=== PATIENT | female | born 1970 | race Caucasian/White ===

== ENCOUNTER 2016-11-01 13:29 | Emergency (ER) | payer OTHER ==
[2016-11-01 13:43] VITALS: BP 122/73
[2016-11-01] MEDS ORDERED: Sodium Chloride 0.9% 1,000 ML IV ONE (13:52)
[2016-11-01] MEDS ORDERED: HYDROmorphone 1 MG/ML Syringe IVPUSH ONE ×3 (13:52→18:20)
[2016-11-01] MEDS ORDERED: Metoclopramide 10 MG/2 ML SDV IVPUSH ONE (13:53)
--- NOTE | 2016-11-01 13:59 | EDM.PDOC ---
ED HPI GI/ABDOMINAL - General Chief Complaint: Abdominal Pain Stated Complaint: POST-SURGICAL ABDOMINAL PAIN Time Seen by Provider: 11/01/16 13:52 Source of Information: Reports: Patient History Limitations: Reports: No limitations - History of Present Illness INITIAL COMMENTS - FREE TEXT/NARRATIVE: 46-year-old female currently a inmate at the women's correctional facility in [place]. She underwent gastric bypass initially in 2000. Subsequent recurrent problems with fistulous to the skin in the midline since that time and she relates 7 previous surgeries. 2 weeks ago she underwent midline laparotomy to explore the fistula and provide closure. 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 This surgery was carried out by Dr. Arriaga at [facility] in [place]. Patient reports that she believes that this was connected to the loop of duodenum utilized for the bypass. It's unclear exactly what was done for sure other than that the fistula was closed off. She states that she's been having chronic pain in the area since the surgery which is getting worse the last few days with now developing redness inferior aspect of the wound. States the pain travels underneath her right costal margin and it circles back to the midline. She states she can barely eat before she feels full. The stool she did does have the are always loose IE part of the dumping syndrome.this usually occurs once to 3 times daily. No blood noted. Aware of any fever or severe chills. Previous abdominal surgeries include cholecystectomy total abdominal hysterectomy with removal of one ovary. 2 previous C-sections. Symptom Onset Date: 10/17/16 Timing/Duration: Reports: Day(s):, Constant, Getting worse Location: other (wound is in the midline and mostly supraumbilical.) Quality: Reports: ache, burning, fullness, stabbing, radiating (radiates along the right costal margin and then circles back towards the midline to the umbilicus.) Severity: moderate Improves with: Reports: other (nothing seems to make it better or worse.). Denies: defecating Context: Reports: recent surgery (as described above). Denies: sick contact, bad/questionable food, out of country travel, recent trauma, lifting Associated Symptoms (-Female): Reports: diarrhea (toes are always loose.), loss of appetite, malaise. Denies: shoulder pain, constipation Treatments CAMPGROUND MANAGER: Reports: Acetaminophen, NSAIDS (Motrin. Note this is relatively contraindicated in gastric bypass patients.) - Related Data Allergies/ADRs: Allergies Allergy/AdvReac Type Severity Reaction Status Date / Time aspirin Allergy Swelling Verified 11/01/16 13:43 bee pollen Allergy Swelling Verified 11/01/16 13:43 loperamide Allergy Cannot Verified 11/01/16 13:43 Remember Home Meds: Home Meds Furosemide 10 mg PO DAILY 05/17/15 [History] Omeprazole 20 mg PO BIDAC 05/17/15 [History] Venlafaxine HCl [Venlafaxine ER] 225 mg PO BEDTIME 05/17/15 [History] Acetaminophen [Tylenol] 650 mg PO Q6H PRN 05/28/15 [History] Ibuprofen [Motrin] 200 mg PO Q6HR PRN 05/28/15 [History] Docusate Sodium [Colace] 100 mg PO DAILY 11/01/16 [History] Past Medical History Other Psychiatric History: personality disorder Other Endocrine/Metabolic History: hypoglycemia Other Hematologic History: HEP C POSITIVE - Past Surgical History GI Surgical History: Reports: Bariatric procedure (gastric bypass Michael-en-Y procedure in 2000.), Cholecystectomy, Other (see below) (7 surgeries for midline abdominal wound drainage and attempted closure superficially. Recent major surgery identified a fistula connecting to the duodenal loop.) Female Surgical History: Reports: section (x2), Hysterectomy, Salpingo-oophorectomy Social & Family History - Tobacco Use Smoking Status *Q: Never Smoker - Recreational Drug Use Recreational Drug Use: No Drug Use in Last 12 Months: No - Living Situation & Occupation Living situation: Reports: other (currently a resident at [facility] in [place]) Occupation: unemployed ED ROS GENERAL - Review of Systems Review Of Systems: See Below Constitutional: Reports: malaise, weakness, fatigue, decreased appetite, weight loss. Denies: fever, chills HEENT: Reports: No symptoms Respiratory: Reports: Shortness of Breath, Other (feels pressure up into the mid epigastric area which causes her to feel short of breath at times.) Cardiovascular: Reports: No symptoms Endocrine: Reports: fatigue GI/Abdominal: Reports: Abdominal pain (see history of present illness), Diarrhea (chronic loose stools since having gastric bypass surgery.) : Reports: no symptoms Musculoskeletal: Reports: back pain Skin: Reports: wound (erythema around the surgical wound.) Neurological: Reports: No Symptoms Psychiatric: Reports: No symptoms Hematologic/Lymphatic: Reports: no symptoms ED EXAM, GI/ABD - Physical Exam Exam: See Below Exam Limited By: No limitations General Appearance: alert, moderate distress (she is anxious but claims that she is in quite significant discomfort in the abdominal wound area.) Eyes: bilateral: normal appearance (no jaundice.) Throat/Mouth: Normal inspection, Normal lips, Normal oropharynx, Other Head: atraumatic, normocephalic (tongue is mildly dry and coated) Neck: normal inspection, supple, non-tender, full range of motion Respiratory/Chest: no respiratory distress, lungs clear, normal breath sounds, no accessory muscle use, respiratory distress Cardiovascular: regular rate, rhythm, no edema. No: normal peripheral pulses GI/Abdominal: hyperactive bowel sounds (slightly hyperactive active bowel sounds in all 4 quadrants), tenderness (marked tenderness midline supraumbilical surgical wound. There is erythema of the skin inferiorly and to the right of the midline. It is fairly faint at this time), guarding (. It is warm to palpation and very tender.) Back Exam: normal inspection, full range of motion. No: CVA tenderness (L), CVA tenderness (R) Extremities: normal inspection, normal range of motion, non-tender, no pedal edema, normal capillary refill Neurological: alert, oriented, CN II-XII intact, normal cognition Psychiatric: normal affect, normal mood Skin Exam: Warm, Dry, Intact, Normal color, No rash Course - Vital Signs Last Recorded V/S: Last Vital Signs Temp 36.8 C 11/01/16 13:39 Pulse 77 11/01/16 13:39 Resp 20 11/01/16 13:39 BP 122/73 11/01/16 13:39 Pulse Ox 100 11/01/16 13:39 - Orders/Labs/Meds Orders: Active Orders 24 hr Category Date Time Status CULTURE BLOOD [BC] Stat Lab 11/01/16 14:15 Received CULTURE BLOOD [BC] Stat Lab 11/01/16 14:27 Received Blood Culture x2 Reflex Set [OM.PC] Stat Oth 11/01/16 13:53 Ordered Labs: Laboratory Tests 11/01/16 11/01/16 11/01/16 Range/Units 14:15 14:15 14:54 WBC 8.62 (3.98-10.04) K/mm3 RBC 3.36 L (3.98-5.22) M/mm3 Hgb 10.6 L (11.2-15.7) gm/L Hct 32.3 L (34.1-44.9) % MCV 96.1 H (79.4-94.8) fl MCH 31.5 (25.6-32.2) pg MCHC 32.8 (32.2-35.5) g/dl RDW Std Deviation 45.3 (36.4-46.3) fL Plt Count 184 (182-369) K/mm3 MPV 10.4 (9.4-12.3) fl Neutrophils % (Manual) 72 H (40-60) % Band Neutrophils % 0 (0-10) % Lymphocytes % (Manual) 21 (20-40) % Atypical Lymphs % 0 % Monocytes % (Manual) 3 (2-10) % Eosinophils % (Manual) 4 (0.7-5.8) % Basophils % (Manual) 0 L (0.1-1.2) Platelet Estimate Adequate Polychromasia Few Anisocytosis 1+ slight Macrocytosis 1+ slight Ovalocytes 1+ slight RBC Morph Comment Not Reportable Sodium 143 (136-145) mEq/L Potassium 4.6 (3.5-5.1) mEq/L Chloride 109 H (98-107) mEq/L Carbon Dioxide 26 (21-32) mEq/L Anion Gap 12.6 (5-15) BUN 5 L (7-18) mg/dL Creatinine 0.7 (0.55-1.02) mg/dL Est Cr Clr Drug Dosing 91.32 mL/min Estimated GFR (MDRD) > 60 (>60) mL/min BUN/Creatinine Ratio 7.1 L (14-18) Glucose 65 L (74-106) mg/dL Calcium 8.5 (8.5-10.1) mg/dL Total Bilirubin 0.2 (0.2-1.0) mg/dL AST 14 L (15-37) U/L ALT 20 (14-59) U/L Alkaline Phosphatase 113 (46-116) U/L C-Reactive Protein 2.4 H* (<1.0) mg/dL Total Protein 6.8 (6.4-8.2) g/dl Albumin 2.9 L (3.4-5.0) g/dl Globulin 3.9 gm/dL Albumin/Globulin Ratio 0.7 L (1-2) Lipase 194 (73-393) U/L Urine Color Yellow (Yellow) Urine Appearance Clear (Clear) Urine pH 7.0 (5.0-8.0) Ur Specific [place] 1.015 (1.005-1.030) Urine Protein Negative (Negative) Urine Glucose (UA) Negative (Negative) Urine Ketones Negative (Negative) Urine Occult Blood Negative (Negative) Urine Nitrite Negative (Negative) Urine Bilirubin Negative (Negative) Urine Urobilinogen 0.2 (0.2-1.0) Ur Leukocyte Esterase Negative (Negative) Urine RBC Not seen (0-5) /hpf Urine WBC 0-5 (0-5) /hpf Ur Epithelial Cells Not Reportable Ur Squamous Epith Cells 0-5 (0-5) /hpf Urine Bacteria Rare (FEW) /hpf Urine Mucus Not seen (FEW) /hpf Meds: Medications Discontinued Medications Generic Name Dose Route Start Last Admin Trade Name Freq PRN Reason Stop Dose Admin Diatrizoate Meglum/Diatrizoate Sod 120 ml 11/01/16 14:23 11/01/16 14:35 Gastrografin 37% PO 11/01/16 14:24 45 ml ONETIME ONE Administration Hydromorphone HCl 1 mg 11/01/16 13:52 11/01/16 14:21 Dilaudid IVPUSH 11/01/16 13:53 1 mg ONETIME ONE Administration Hydromorphone HCl 1 mg 11/01/16 16:20 11/01/16 16:29 Dilaudid IVPUSH 11/01/16 16:21 1 mg ONETIME ONE Administration Hydromorphone HCl Confirm 11/01/16 18:20 Dilaudid Administered 11/01/16 18:21 Dose 1 mg .ROUTE .STK-MED ONE Hydromorphone HCl 1 mg 11/01/16 18:20 11/01/16 18:22 Dilaudid IVPUSH 11/01/16 18:21 1 mg ONETIME ONE Administration Sodium Chloride 1,000 mls @ 250 mls/hr 11/01/16 13:52 11/01/16 14:20 Normal Saline IV 11/01/16 17:51 250 mls/hr ONETIME ONE Administration Ceftriaxone Sodium 2 gm/ 100 mls @ 200 mls/hr 11/01/16 14:25 11/01/16 14:53 Sodium Chloride IV 11/01/16 14:54 200 mls/hr ONETIME ONE Administration Vancomycin HCl 1 gm/ Sodium 250 mls @ 250 mls/hr 11/01/16 16:30 11/01/16 16: 29 Chloride IV 250 mls/hr Q24H LASHA Administration Potassium Chloride/Dextrose/Sod Cl 1,000 mls @ 150 mls/hr 11/01/16 17:00 03/12 17:16 D5 Ns With 20 Meq Kcl IV 150 mls/hr ASDIRECTED LASHA Administration Iopamidol 150 ml 11/01/16 14:23 11/01/16 14:35 Isovue-300 (61%) IVPUSH 11/01/16 14:24 125 ml ONETIME ONE Administration Metoclopramide HCl 10 mg 11/01/16 13:53 11/01/16 14:21 Reglan IVPUSH 11/01/16 13:54 10 mg ONETIME ONE Administration Sodium Chloride 10 ml 11/01/16 14:23 11/01/16 14:35 Saline Flush FLUSH 10 ml ONETIME PRN Administration IV FLUSH - Radiology Interpretation Free Text/Narrative:: 46-year-old female is brought to the emergency room by a police guard for assessment of diffuse abdominal pain. Patient reports that she underwent minilaparotomy by Dr. Arriaga at [facility] in [facility] on October 20. 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 Multiple attempts to read close up the wound is superficial he has failed. I believe 7 different surgeries. From what I can understand she underwent a resection of a fistula that was connected to her stomach i.e. gastrocutaneous fistula resection. She tends the ED today but increased with increasing abdominal pain for the last 3 days and now redness and swelling. She states her wound is so sore she can't even touch it or bend over. She claims she 's had some chills but no noted fever. Bowel movements have been sluggish his appetite has been poor. She feels her pain management as not being managed appropriately in the [facility]. She is on combination Motrin and Tylenol. Denies any blood in the stool. Previous abdominal surgeries a cholecystectomy total bowel hysterectomy with retention of ovaries. - Re-Assessments/Exams Free Text/Narrative Re-Assessment/Exam: 11/01/16 15:38 labs reveal a white count of 8.62 with 72% neutrophils and no bands. Hemoglobin is slightly low at 10.6 with hematocrit of 32.3. Lites are satisfactory 184,000. Sodium is 143 potassium is 4.6. Chloride mildly elevated 109. Gap normal at 12.6 CRP mildly elevated at 2.4. Glucose was low at 65. Albumin is 2.9. IV will be to change to contain glucose. CT of the abdomen and pelvis has been completed. Some oral contrast was use to try and visualize the upper GI tract which includes the gastric pouch. Regardless reports mild intrahepatic biliary ductal dilatation is noted. Common bile duct is dilated up to 1.8 cm this biliary duct dilatation is increased from prior CT exams. Surgical changes noted within the stomach compatible with gastric bypass surgery. Kidneys were without hydronephrosis or masses. Aorta normal. No adenopathy or mesenteric disease seen. Several surgical clips are noted in the intermesenteric appendix was not definitely visualized. Delayed images were also obtained through the abdomen and pelvis which showed contrast excretion within both ureters and into the urinary bladder. Slightly prominent fluid- filled small bowel seen raising the possibility of mild ileus pattern. There is increased stool particularly noted throughout the right hemicolon and hepatic flexure area. Inflammatory changes are appreciated within the anterior abdominal wall there is fluid being seen along the inner surface of the rectus abdominis muscles measuring approximately 7.5 x 1.6 cm. This could represent abscess or liquefying hematoma/seroma. A second smaller fluid collection noted external to the abdominal wall musculature beneath the skin measures approximately 1.7 cm and contains a small amount of air this could represent abscess or resolving hematoma.plan I on 2 g of Rocephin IV we'll but will also hang 1 g of vancomycin to cover for MRSA infection. Spoke with the hospitalist and they were not interested in admission here. He would prefer she be seen at her place of surgery. This be [facility]. I will contact them through the one call system. 11/01/16 16:15: Spoke with on-call surgeon Dr. Mcgraw . He agrees the patient should be transferred and will see in consultation at the request of the hospitalist.patient has been accepted by Dr. Acevedo-- hospitalist. Patient be transported by ground ambulance . She's also a minimum security risk and a guard will have to stay with her at all times during her hospitalization. Assessment be arranged through the [place] usp system. Therefore it may take a little time to get everything in place to provide transport. 11/01/16 18:20: patient was given another 0.5 mg of Dilaudid IV prior to departure from the ED to facilitate the ambulance ride. Departure - Departure Time of Disposition: 18:25 Disposition: DC/Tfer to [facility] 02 Condition: fair Clinical Impression: Cellulitis of abdominal wall, Constipation by delayed colonic transit Referrals: Gabi Noyola PA-C [Primary Care Provider] - Forms: ED Department Discharge Additional Instructions: patient be transferred back to [facility]. She underwent surgery. She had resection of a gastric cutaneous fistula that had formed after gastric bypass surgery in 2000. This surgery was carried out on 20 October. Unfortunately she has developed a postoperative complication with an early cellulitis developing in the abdominal wall with potential for abscess formation is are 2 fluid collections within the abdominal wall one under the rectus abdominis muscles and once external to the abdominal musculature under the skin. Hopefully IV antibiotics acetylene infection and she will not need to repeat percutaneous drainage. - My Orders Last 24 Hours: My Active Orders 11/01/16 13:53 Blood Culture x2 Reflex Set [OM.PC] Stat 11/01/16 14:15 CULTURE BLOOD [BC] Stat 11/01/16 14:27 CULTURE BLOOD [BC] Stat - Assessment/Plan Last 24 Hours: My Active Orders 11/01/16 13:53 Blood Culture x2 Reflex Set [OM.PC] Stat 11/01/16 14:15 CULTURE BLOOD [BC] Stat 11/01/16 14:27 CULTURE BLOOD [BC] Stat
[2016-11-01] MEDS ORDERED: Iopamidol 612 MG/ML 150 ML Bottle IVPUSH ONE (14:23)
[2016-11-01] MEDS ORDERED: Sodium Chloride 0.9% 10 ML Syringe FLUSH PRN (14:23)
[2016-11-01] MEDS ORDERED: Diatrizoate Meglumine/Diatrizoate Sodium 37% 120 ML Bottle PO ONE (14:23)
[2016-11-01] MEDS ORDERED: cefTRIAXone 2 GM in Sodium Chloride 0.9% 100 ML IV ONE (14:25)
--- NOTE | 2016-11-01 15:08 | CT ---
CT abdomen and pelvis Technique: Multiple axial sections were obtained from above the dome of the diaphragm inferiorly through the pubic symphysis. Intravenous contrast was utilized. There is some oral contrast present which shows incomplete opacification of small bowel. Comparison: Previous CT abdomen and pelvis exam of 09/06/15. Findings: Small portion of the visualized lung bases are clear. Liver shows no focal parenchymal abnormality. Mild intrahepatic biliary ductal dilatation is seen. Common bile duct is also dilated up to 1.8 cm. This biliary duct dilatation is increased from prior CT exam. Surgical clips are seen from prior cholecystectomy. Surgical change is noted within the stomach which is seen on prior exam. Spleen appears within normal limits. Adrenal glands show no nodules. Kidneys show contrast without hydronephrosis or mass. Aorta shows no dilatation. No right. No adenopathy or mesenteric Disease are seen. Several surgical clips are noted within the anterior mesentery. Appendix not definitely visualized. No pelvic mass or adenopathy is seen. Delayed images were also obtained through the abdomen and pelvis which shows contrast excretion within both ureters with contrast seen within the bladder. Slightly prominent fluid-filled small bowel is seen raising the possibility of mild ileus. Mild increased stool is noted throughout colon. Inflammatory change is noted within the anterior abdominal wall. There is fluid being seen along the inner surface of the rectus muscles measuring approximately 7.5 x 1.6 cm. This could represent abscess or liquefying hematoma. 2nd smaller fluid collection noted external to the abdominal wall musculature beneath the skin measuring approximately 1.7 cm which contains a small amount of air. This could represent abscess or resolving hematoma. Bone window settings were reviewed which appear within normal limits for the patient's age. Impression: 1. Inflammatory type change within the anterior abdominal wall with 2 fluid collections being seen with 1st collection being external being external to the abdominal wall musculature and containing a small amount of air and 2nd being internal to the abdominal wall musculature. As mentioned above, these fluid collections could represent resolving hematomas from prior surgery or represent abscess formation. 2. Increasing biliary duct dilatation is seen from prior CT exam. Please correlate if patient has abnormal biliary enzymes for this to represent a nonvisualized distal obstructing CBD lesion or if biliary enzymes are normal this relates to prior cholecystectomy. 3. Fluid-filled and slightly prominent small bowel wall suggestive of a mild persisting ileus. 4. Other incidental findings as noted above. Diagnostic code #3
[2016-11-01] MEDS ORDERED: Dextrose 5%-0.9% NaCl with KCl 1,000 ML IV SCH (17:00)
[2016-11-01] MEDS ORDERED: HYDROmorphone 1 MG/ML Syringe ONE (18:20)
== END 2016-11-01 18:23 ==
LOC: JD.ED 13:29
DX: T81.4XXA Infection following a procedure, initial encounter (principal); L03.311 Cellulitis of abdominal wall; K59.00 Constipation, unspecified; K83.1 Obstruction of bile duct; E16.2 Hypoglycemia, unspecified; Z88.8 Allergy status to other drugs, medicaments and biological substances; Z91.030 Bee allergy status; Z79.899 Other long term (current) drug therapy; Z98.890 Other specified postprocedural states; Z90.49 Acquired absence of other specified parts of digestive tract
CPT/HCPCS: 36415; 74177; 80053; 81001; 83690; 85025; 86140; 87040; 96361; 96365; 96367; 96375; 96376; 99285; J0696; J1170; J2765; J3370; J3480; J7030; J7040; J7050; Q9963; Q9967